=== PATIENT | male | born 1995 | race African-American/Black ===

== ENCOUNTER 2018-12-22 20:58 | Emergency (ER) | payer BC ==
[~2018-12-22] VITALS: Ht 182.9 cm; Wt 107.0 kg
[2018-12-23 01:30] LABS: BASOPHILS % 0.8 % (0.0-2.0); EOSINOPHILS % 5.2 % (0.0-5.0); HEMATOCRIT. 41.2 % (42.0-52.0); HEMOGLOBIN. 13.8 g/dL (14.0-18.0); LYMPHOCYTES % 27.8 % (20.0-50.0); MEAN CORPUSCULAR HEMOGLOBIN 31.7 pg (28.0-32.0); MEAN CORPUSCULAR VOLUME 94.6 fL (80.0-94.0); MONOCYTES % 8.7 % (2.0-8.0); NEUTROPHILS % 57.5 % (40.0-76.0); PLATELET 343 x1000/uL (130-400); RED BLOOD CELL COUNT 4.35 mill/uL (4.7-6.1); RED CELL DISTRIBUTION WIDTH 12.2 % (11.6-14.6)
[2018-12-23 01:35] LABS: CHLORIDE 105 mEq/L (98-107)
[2018-12-23 04:10] VITALS: BP 132/80
== END 2018-12-23 04:46 | disposition home or self-care (01) ==
LOC: ER 20:58
DX: B34.9 Viral infection, unspecified (principal); J06.9 Acute upper respiratory infection, unspecified
CPT/HCPCS: 36415; 71045; 76705; 80053; 83690; 85025; 99284; Z7610